=== PATIENT | female | born 1960 | race American Indian/Alaskan Native ===

== ENCOUNTER 2017-07-18 05:18 | Emergency (ER) | payer OTHER, MEDICARE ==
[2017-07-18 05:36] VITALS: O2SAT 98
--- NOTE | 2017-07-18 05:41 | C.PDOC ---
Time Seen by Provider: 07/18/17 05:38 Chief Complaint (Nursing): High Blood Pressure Past Medical History Vital Signs: Last Vital Signs Temp 97.5 F L 07/18/17 05:30 Pulse 78 07/18/17 05:30 Resp 14 07/18/17 05:30 BP 152/83 H 07/18/17 05:30 Pulse Ox 98 07/18/17 05:30 - Medical History PMH: HTN Surgical History: Denies: Pacemaker - [facility] Procedures COLONOSCOPY (01/27/13) ESOPHAGOGASTRODUODENOSCOPY [EGD] W/CLOSED BIOPSY (01/27/13) - Social History Hx Alcohol Use: No Hx Substance Use: No - Immunization History Hx Tetanus Toxoid Vaccination: Yes Hx Influenza Vaccination: No Hx Pneumococcal Vaccination: No ED Course And Treatment ECG: Interpreted By Me ECG Rhythm: Sinus Rhythm ECG Interpretation: Normal, No Acute Changes Interpretation Of ECG: NSR at rate of 71 BPM,LAE,Incomplete RBBB,no ectopy,no acute STTW changes O2 Sat by Pulse Oximetry: 98 Disposition - Disposition
--- NOTE | 2017-07-18 06:11 | C.PDOC ---
History Of Present Illness 57 year old female who presents to the ER with a complaint of having a blood pressure reading of 152/108 at home. Patient states she usually checks her blood pressure at night and has noticed it fluctuating over the past few weeks. Patient was seen by her PMD who advised her to continue her current meds. Patient report she is still not feeling well and notes tonight she felt achy and tired which prompted ER visit. Denies chest pain, SOB, visual complaints, weakness, or numbness. Time Seen by Provider: 07/18/17 05:38 Chief Complaint (Nursing): High Blood Pressure History Per: Patient History/Exam Limitations: no limitations Onset/Duration Of Symptoms: Hrs Current Symptoms Are (Timing): Still Present Recent travel outside of the [place]: No Past Medical History Reviewed: Historical Data, Nursing Documentation, Vital Signs Vital Signs: Last Vital Signs Temp 97.6 F 07/18/17 06:22 Pulse 66 07/18/17 06:22 Resp 16 07/18/17 06:22 BP 141/90 07/18/17 06:22 Pulse Ox 98 07/18/17 06:24 - Medical History PMH: HTN - [facility] Procedures COLONOSCOPY (01/27/13) ESOPHAGOGASTRODUODENOSCOPY [EGD] W/CLOSED BIOPSY (01/27/13) Family History: States: Unknown Family Hx - Social History Hx Alcohol Use: No Hx Substance Use: No - Immunization History Hx Tetanus Toxoid Vaccination: Yes Hx Influenza Vaccination: No Hx Pneumococcal Vaccination: No Review Of Systems Constitutional: Negative for: Fever, Chills Cardiovascular: Negative for: Chest Pain Respiratory: Negative for: Shortness of Breath Neurological: Negative for: Weakness, Numbness Physical Exam - Physical Exam Appears: Well, Non-toxic, No Acute Distress Skin: Normal Color, Warm, Dry Head: Atraumatic, Normacephalic Eye(s): bilateral: Normal Inspection, PERRL, EOMI Ear(s): Bilateral: Normal Oral Mucosa: Moist Neck: Normal, Supple Chest: Symmetrical Cardiovascular: Rhythm Regular Respiratory: Normal Breath Sounds, No Rales, No Rhonchi, No Wheezing Gastrointestinal/Abdominal: Soft, No Tenderness Neurological/Psych: Oriented x3, Normal Speech, Normal Cognition, Normal Motor, Normal Sensation ED Course And Treatment O2 Sat by Pulse Oximetry: 98 (Room air) Pulse Ox Interpretation: Normal Progress Note: EKG ordered. Tylenol administered. Patient appears to be well and stable in the ER; patient reassured, advised to continue medication and to follow up with PMD for reevaluation and management as needed. Disposition Counseled Patient/Family Regarding: Diagnosis, Need For Followup, Rx Given - Disposition Disposition: HOME/ ROUTINE Disposition Time: 06:09 Condition: STABLE Additional Instructions: Please follow up with PMD Tylenol as needed for pain Return to ER if worse Instructions: Hypertension (ED) Forms: [facility] (Moldovan) - Clinical Impression Clinical Impression: History of hypertension, Arthralgia - Scribe Statement The provider has reviewed the documentation as recorded by the Scribshyam Bowling All medical record entries made by the Akiibshyam were at my direction and personally dictated by me. I have reviewed the chart and agree that the record accurately reflects my personal performance of the history, physical exam, medical decision making, and the department course for this patient. I have also personally directed, reviewed, and agree with the discharge instructions and disposition.
[2017-07-18 06:24] VITALS: BP 141/90; PULSE 66; RESP 16; TEMP 97.6
--- NOTE | 2017-07-21 12:43 | CARD ---
APPROVED REPORT EKG Measurement Heart [id number] <Conclusion> Normal sinus rhythm Possible Left atrial enlargement Incomplete right bundle branch block Borderline ECG
== END 2017-07-18 06:24 | disposition home or self-care (01) ==
LOC: C.ER 05:18
DX: I10 Essential (primary) hypertension (principal); M25.50 Pain in unspecified joint

== ENCOUNTER 2018-04-23 15:25 | Emergency (ER) | payer MEDICARE, OTHER ==
[2018-04-23 15:30] VITALS: BP 134/91; PULSE 70; RESP 18; TEMP 98.1; O2SAT 99
--- NOTE | 2018-04-23 16:23 | C.PDOC ---
History Of Present Illness 58 y/o female presents to the ER complaining of right thumb pain which began 2 weeks ago. Pain is worse with certain movements. Patient reports that she washes dishes frequently and she takes care of her grandchildren which causes pain with certain movements. She notes that she went to see her PMD a few days ago who prescribed unknown pain medications. She does not want to take them because of the " way they make me feel." Denies having swelling, trauma, weakness and changes in sensation. Time Seen by Provider: 04/23/18 15:49 Chief Complaint (Nursing): Upper Extremity Problem/Injury History Per: Patient History/Exam Limitations: no limitations Onset/Duration Of Symptoms: Days Current Symptoms Are (Timing): Still Present Severity: Moderate Past Medical History Reviewed: Historical Data, Nursing Documentation, Vital Signs Vital Signs: Last Vital Signs Temp 98.1 F 04/23/18 15:29 Pulse 70 04/23/18 15:29 Resp 18 04/23/18 15:29 BP 134/91 H 04/23/18 15:29 Pulse Ox 99 04/23/18 21:40 - Medical History PMH: HTN Surgical History: Denies: Pacemaker - [facility] Procedures COLONOSCOPY (01/27/13) ESOPHAGOGASTRODUODENOSCOPY [EGD] W/CLOSED BIOPSY (01/27/13) Family History: States: No Known Family Hx - Social History Hx Alcohol Use: No Hx Substance Use: No - Immunization History Hx Tetanus Toxoid Vaccination: Yes Hx Influenza Vaccination: No Hx Pneumococcal Vaccination: No Review Of Systems Except As Marked, All Systems Reviewed And Found Negative. Musculoskeletal: Positive for: Other (right thumb pain) Neurological: Negative for: Weakness, Numbness Physical Exam - Physical Exam Appears: Non-toxic, No Acute Distress Skin: Normal Color, Warm, Dry Head: Atraumatic, Normacephalic Eye(s): bilateral: Normal Inspection, EOMI Nose: Normal Oral Mucosa: Moist Neck: Supple Chest: Symmetrical Respiratory: No Accessory Muscle Use Extremity: No Normal ROM (pain with flexion of right thumb), Tenderness ( tenderness to 1st MCP joint of right hand), Capillary Refill (< 2 sec), No Swelling Pulses: Left Radial: Normal, Right Radial: Normal Neurological/Psych: Oriented x3, Normal Speech, Normal Sensation ED Course And Treatment O2 Sat by Pulse Oximetry: 99 (RA) Pulse Ox Interpretation: Normal - Other Rad X-Ray- Right Thumb X-Ray: Viewed By Me, Read By Radiologist Interpretation: Date of service: 04/23/2018. PROCEDURE: Right Thumb radiographs. HISTORY: pain. COMPARISON: None. TECHNIQUE: AP radiograph of the right hand, as well as spot oblique and lateral images of thumb were obtained. FINDINGS: RIGHT THUMB: Normal right thumb, without acute fracture or focal lesion. Remainder of the right hand (as seen on the AP view) grossly unremarkable. JOINTS: There is mild degenerative osteoarthrosis in the 1st metacarpophalangeal joint with reduced joint space and subarticular sclerosis. The remaining joint spaces are preserved. SOFT TISSUES: Normal. OTHER FINDINGS: None. IMPRESSION: No acute fracture or dislocation. 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 Progress Note: X-Ray-Right Thumb shows no fracture dislocation. Patient has been discharged and instructed to follow up with hand specialist in 1-2 days. Disposition - Disposition Referrals: Brittni Anthony MD [Staff Provider] - Disposition: HOME/ ROUTINE Disposition Time: 16:20 Condition: STABLE Additional Instructions: Follow up with the hand specialist in 1-2 days. Prescriptions: Naproxen [Naprosyn] 1 tab PO BID PRN #20 tab PRN Reason: Pain Instructions: Tendonitis Forms: [facility] (Arabic) - Clinical Impression Clinical Impression: Finger sprain - PA / DIRECTOR PAYMENT / Resident Statement MD/DO has reviewed & agrees with the documentation as recorded. - Scribe Statement The provider has reviewed the documentation as recorded by the Lewis Omer Provider Attestation All medical record entries made by the Scribe were at my direction and personally dictated by me. I have reviewed the chart and agree that the record accurately reflects my personal performance of the history, physical exam, medical decision making, and the department course for this patient. I have also personally directed, reviewed, and agree with the discharge instructions and disposition.
--- NOTE | 2018-04-23 16:55 | RAD ---
Date of service: 04/23/2018 PROCEDURE: Right Thumb radiographs. HISTORY: pain COMPARISON: None. TECHNIQUE: AP radiograph of the right hand, as well as spot oblique and lateral images of thumb were obtained. FINDINGS: RIGHT THUMB: Normal right thumb, without acute fracture or focal lesion. Remainder of the right hand (as seen on the AP view) grossly unremarkable. JOINTS: There is mild degenerative osteoarthrosis in the 1st metacarpophalangeal joint with reduced joint space and subarticular sclerosis. The remaining joint spaces are preserved. SOFT TISSUES: Normal. OTHER FINDINGS: None. IMPRESSION: No acute fracture or dislocation. 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
== END 2018-04-23 16:28 | disposition home or self-care (01) ==
LOC: C.ER 15:25
DX: S63.601A Unspecified sprain of right thumb, initial encounter (principal); X50.0XXA Overexertion from strenuous movement or load, initial encounter; Y92.89 Other specified places as the place of occurrence of the external cause

== ENCOUNTER 2018-10-27 23:45 | Emergency (ER) | payer MEDICARE, OTHER ==
[2018-10-27 23:54] VITALS: BP 161/106; PULSE 112; RESP 16; TEMP 98.3; O2SAT 97
[2018-10-28] MEDS ORDERED: Sodium Chloride 0.9% 1,000 ML IV ONE (00:11)
--- NOTE | 2018-10-28 00:11 | C.PDOC ---
History Of Present Illness see paper chart. On downtime Time Seen by Provider: 10/28/18 00:10 Chief Complaint (Nursing): Female Genitourinary Past Medical History Vital Signs: Last Vital Signs Temp 98.3 F 10/27/18 23:51 Pulse 112 H 10/27/18 23:51 Resp 16 10/27/18 23:51 BP 161/106 H 10/27/18 23:51 Pulse Ox 97 10/27/18 23:51 - Medical History PMH: HTN Surgical History: Denies: Pacemaker - [facility] Procedures COLONOSCOPY (01/27/13) ESOPHAGOGASTRODUODENOSCOPY [EGD] W/CLOSED BIOPSY (01/27/13) Family History: States: Unknown Family Hx - Social History Hx Alcohol Use: No Hx Substance Use: No - Immunization History Hx Tetanus Toxoid Vaccination: Yes Hx Influenza Vaccination: No Hx Pneumococcal Vaccination: No ED Course And Treatment - Laboratory Results Result Diagrams: 10/28/18 00:50 10/28/18 00:50 O2 Sat by Pulse Oximetry: 97 Disposition Counseled Patient/Family Regarding: Studies Performed, Diagnosis - Disposition Disposition: HOME/ ROUTINE Disposition Time: 00:11 Condition: GOOD Forms: [facility] (Jamaican) - Clinical Impression Clinical Impression: Vagina bleeding
[2018-10-28] MEDS ORDERED: Iodixanol 320 MG/ML 100 ML BOTTLE IV ONE (00:59)
[2018-10-28 07:14] LABS: BASO % 0.4 % (0.0-2.0); EOS % 0.2 % (0.0-4.0); HEMOGLOBIN 14.1 g/dL (11.0-16.0); LYMPH # 1.3 K/uL (1.0-4.3); LYMPH % 12.9 % (20.0-40.0); MEAN CELL VOLUME 87.5 fL (81.0-99.0); MEAN CORPUSCULAR HEMOGLOBIN 28.9 pg (27.0-31.0); MEAN CORPUSCULAR HGB CONC 33.1 g/dL (33.0-37.0); MEAN PLATELET VOLUME 8.3 fL (7.2-11.7); MONO # 0.7 K/uL (0.0-0.8); NEUT # 8.3 K/uL (1.8-7.0); NEUT % 79.5 % (50.0-75.0); NRBC % 0.1 % (0.0-2.0); RBC 4.87 Mil/uL (3.80-5.20); RED CELL DISTRIBUTION WIDTH 13.5 % (11.5-14.5); WHITE BLOOD COUNT 10.4 K/uL (4.8-10.8)
[2018-10-28 07:25] LABS: INR 1.2; PROTHROMBIN TIME 13.2 SECONDS (9.7-12.2)
[2018-10-28 07:47] LABS: URINE BILIRUBIN NEGATIVE (NEGATIVE); URINE CLARITY Clear (Clear); URINE COLOR YELLOW (YELLOW)
[2018-10-28 07:48] LABS: URINE BLOOD 3+ (NEGATIVE); URINE GLUCOSE (UA) Normal (Normal); URINE LEUKOCYTE ESTERASE 1+ Leu/uL (Negative); URINE PROTEIN 1+ mg/dL (NEGATIVE); URINE UROBILINOGEN Normal mg/dL (0.2-1.0)
[2018-10-28 07:49] LABS: SQUAMOUS EPITHIAL 2 /hpf (0-5)
[2018-10-28 07:50] LABS: BLOOD UREA NITROGEN 8 mg/dL (7-17)
[2018-10-28 07:51] LABS: ALB/GLOB RATIO 1.1 (1.0-2.1); ALBUMIN 4.3 g/dL (3.5-5.0); ALT/SGPT 16 U/L (9-52); AST/SGOT 33 U/L (14-36); CALCIUM 8.7 mg/dl (8.6-10.4); GFR NON-AFRICAN AMERICAN > 60
[2018-10-28 07:59] LABS: LIPASE 210 U/L (23-300)
--- NOTE | 2018-10-28 10:14 | CT ---
Date of service: 10/28/2018 PROCEDURE: CT Abdomen and Pelvis with contrast HISTORY: abd pain, vag bleed COMPARISON: None. TECHNIQUE: Following oral and intravenous contrast administration, a CT examination of the abdomen and pelvis performed from the domes of the diaphragms to the symphysis pubis with reformatted datasets provided not only axial but also sagittal and coronal series. Coronal and sagittal reformats were generated. Contrast dose: Visipaque 320, 100 cc Radiation dose: Total exam DLP = 863.39 mGy-cm. This CT exam was performed using one or more of the following dose reduction techniques: Automated exposure control, adjustment of the mA and/or kV according to patient size, and/or use of iterative reconstruction technique. FINDINGS: LOWER THORAX: Small hiatal hernia identified with lung bases otherwise unremarkable appearing. LIVER: 1.1 cm cyst seen at the left lobe liver laterally with and much smaller lucency well under 1 cm size at the right lobe posteriorly, too small to characterize. A similar tiny lucency is barely visible in 1 or 2 foci of the right lobe liver more inferiorly as well. The remainder of the liver appears unremarkable. GALLBLADDER AND BILE DUCTS: Unremarkable. PANCREAS: No definitive pancreatic lesion is identified with pancreatic duct upper limits normal caliber. No peripancreatic reaction. SPLEEN: Unremarkable. ADRENALS: Unremarkable. No mass. KIDNEYS AND URETERS: No obstructive uropathy or perinephric reaction bilaterally. No definite radiodense urolithiasis bilaterally. 1.1 cm cyst measuring 1.1 Hounsfield units is seen at the medial margins of the upper pole left kidney. There a few tiny lucencies scattered in the cortex of both kidneys too small to characterize. VASCULATURE: No aortic atherosclerotic calcification or mural plaque present. BOWEL: The bowel is not appear obstructed with limited oral contrast ingested opacifying the right hemicolon only, including the appendix. There is prominent mural thickening involving the distal transverse colon, splenic flexure and descending colon with local pericolic reactive changes likely reflecting segmental colitis. Findings are likely reflecting infectious or inflammatory colitis though other etiologies including neoplasm and potentially ischemia are not excluded completely. No significant lymphadenopathy seen the abdomen and there is robust opacification of the celiac artery and axis as well as the superior mesenteric artery. The inferior mesenteric artery appears patent as well. Further clinical correlation is recommended. Minimal sigmoid diverticulosis without definite diverticulitis. Sigmoid colon is collapsed and poorly evaluated. APPENDIX: Normal appendix. PERITONEUM: No ascites. Local pericolic reaction left hemicolon as discussed above. No free intra peritoneal gas collection. There is a tiny umbilical or periumbilical hernia containing fat. A short segment of the transverse colon approaches this hernia. LYMPH NODES: Unremarkable. No enlarged lymph nodes. BLADDER: Unremarkable. REPRODUCTIVE: Prior hysterectomy is suspected. BONES: No acute fracture. OTHER FINDINGS: None. IMPRESSION: 1. Findings most compatible with segmental colitis affecting the distal transverse through descending colon segments without abscess, free air or ascites though limited pericolic reaction is associated. Consider infectious or inflammatory causes. Neoplasm and ischemia not completely excluded though not favored. Please see discussion above. 2. Minimal sigmoid diverticulosis without diverticulitis. Sigmoid colon is limited in evaluation due lack of oral contrast transit and collapse. 3. Small cyst left lobe liver as well as separately at upper pole left kidney. Additional tiny lucencies seen in both kidneys as well as the right lobe liver which are too small to characterize. Preliminary report provided by [facility], 10/28/2018, at 2:29 a.m..
== END 2018-10-28 03:00 | disposition home or self-care (01) ==
LOC: C.ER 23:45
DX: N93.9 Abnormal uterine and vaginal bleeding, unspecified (principal); N39.0 Urinary tract infection, site not specified
CPT/HCPCS: 74177; 80053; 81001; 83690; 85025; 85610; 85730; 86850; 86900; 99282; Q9967

== ENCOUNTER 2019-01-26 15:55 | Outpatient (CLI) | payer MEDICARE, OTHER | END 2019-01-26 15:56 | disposition home or self-care (01) | LOC: C.RADH 15:55 | DX: M19.90 Unspecified osteoarthritis, unspecified site (principal) ==

== ENCOUNTER 2019-02-02 14:01 | Outpatient (CLI) | payer MEDICARE, OTHER | END 2019-02-02 14:02 | disposition home or self-care (01) | LOC: C.MAMMO 14:01 | DX: Z12.31 Encounter for screening mammogram for malignant neoplasm of breast (principal) ==